=== PATIENT | male | born 1965 | race Hispanic/Latino ===

== ENCOUNTER 2021-04-04 19:50 | Emergency (ER) | payer SELFPAY ==
[2021-04-04] MEDS ORDERED: ZIPRASIDONE MESYLATE 20 MG VIAL IM ONE ×2 (20:09→20:10)
--- NOTE | 2021-04-04 20:21 | Emergency Department Report ---
ED Psych HPI - General Chief Complaint: Psych Stated Complaint: HALLCUNATIONS Time Seen by Provider: 04/04/21 20:08 Source: EMS Mode of arrival: Ambulatory - History of Present Illness Initial Comments: Patient is 55 years old male, unknown psychiatric history. Patient brought to the emergency room by EMS from a local [employer] store for evaluation of altered mental status. EMS stated that [facility] the staff called the police and police at the scene for patient acting bizarre and when they approach him he stated that several people from [employer] are following him and trying to get him. Patient also admitted to them that he has been using methamphetamine. Upon arrival to the ER patient is hyperverbal, agitated and restless. Patient admitted that there is people from [employer] are following him and tried to kill him. Patient just kept looking around. EMS reported that patient has a knife in his pocket and the police took it. Patient is in acute psychosis. Patient is fighting the e mergency room staff. Patient received Geodon 20 mg IM for sedation. MD Complaint: altered mental status -: unknown Associated Psychiatric Symptoms: racing thoughts Quality: constant Associated Symptoms: denies other symptoms - Related Data Previous Rx's Medication Instructions Recorded Last Taken Type Venlafaxine [Effexor 37.5mg tab] 37.5 mg PO QDAY 30 Days #30 tab 04/05/21 Unknown Rx Allergies Allergy/AdvReac Type Severity Reaction Status Date / Time No Known Allergies Allergy Verified 04/04/21 20:06 ED Review of Systems ROS: Stated complaint: HALLCUNATIONS Other details as noted in HPI Comment: Unobtainable due to pts medical conditions ED Past Medical Hx - Past Medical History Previous Medical History?: No - Medications Home Medications: Home Medications Medication Instructions Recorded Confirmed Last Taken Type Venlafaxine [Effexor 37.5mg tab] 37.5 mg PO QDAY 30 Days #30 tab 04/05/21 Unknown Rx ED Physical Exam - General Limitations: No Limitations General appearance: anxious, other (Agitated) - Head Head exam: Present: atraumatic, normocephalic, normal inspection - Eye Eye exam: Present: normal appearance - ENT ENT exam: Present: normal exam, normal orophraynx, mucous membranes moist - Neck Neck exam: Present: normal inspection, full ROM. Absent: tenderness, meningismus - Respiratory Respiratory exam: Present: normal lung sounds bilaterally - Cardiovascular Cardiovascular Exam: Present: regular rate, normal rhythm, normal heart sounds - GI/Abdominal GI/Abdominal exam: Present: soft, normal bowel sounds. Absent: distended, tenderness, guarding, rigid, organomegaly, mass, bruit, pulsatile mass, hernia - Extremities Exam Extremities exam: Present: normal inspection, full ROM, normal capillary refill. Absent: tenderness - Back Exam Back exam: Present: normal inspection, full ROM. Absent: CVA tenderness (R), CVA tenderness (L) - Neurological Exam Neurological exam: Present: alert, CN II-XII intact, normal gait, reflexes normal. Absent: motor sensory deficit - Psychiatric Psychiatric exam: Present: agitated, manic. Absent: homicidal ideation, suicidal ideation - Skin Skin exam: Present: warm, intact, normal color ED Course Vital Signs 04/04/21 04/04/21 04/05/21 20:06 22:15 00:43 Temperature 98.6 F 97.6 F Pulse Rate 96 H 73 Respiratory 18 20 20 Rate Blood Pressure 130/98 106/73 [Left] O2 Sat by Pulse 98 96 96 Oximetry 04/05/21 04/05/21 04/05/21 03:48 09:52 10:28 Temperature 97.3 F L 98.2 F Pulse Rate 75 93 H Respiratory 16 20 Rate Blood Pressure 91/52 101/53 [Left] O2 Sat by Pulse 97 95 93 Oximetry ED Medical Decision Making - Lab Data Result diagrams: 04/04/21 20:14 04/04/21 20:14 - Medical Decision Making Patient is 55 years old male, unknown psychiatric history. Patient brought to the emergency room by EMS from a local [employer] store for evaluation of altered mental status. EMS stated that [facility] the staff called the police and police at the scene for patient acting bizarre and when they approach him he stated that several people from [employer] are following him and trying to get him. Patient also admitted to them that he has been using methamphetamine. Upon arrival to the ER patient is hyperverbal, agitated and restless. Patient admitted that there is people from [employer] are following him and tried to kill him. Patient just kept looking around. EMS reported that patient has a knife in his pocket and the police took it. Patient is in acute psychosis. Patient is fighting the emergency room staff. Patient received Geodon 20 mg IM for sedation. Labs reviewed and is unremarkable. Patient is medically cleared to be evaluated by our psychiatric team. Critical care attestation.: If time is entered above; I have spent that time in minutes in the direct care of this critically ill patient, excluding procedure time. ED Disposition Clinical Impression: Acute psychosis Disposition: 01 HOME / SELF CARE / HOMELESS Is pt being admited?: No Condition: Stable Additional Instructions: In case of an emergency, please contact the following numbers: [place] Crisis and Access Line: Number: Crisis Text Line: (Text START) Number: 548044 Suicide Prevention Line: Number: Emergency Number: 911 SUBSTANCE ABUSE PROGRAMS: [facility]: Location: [place], [place] [employer] Address: [address] [place] [address] [facility]: Address: [address] [place] [address] [facility]: Address: [address] [place] [address] [facility]: Address: [address] [place] [address] [facility] Address: [address] [place] [address]. Professional and Agency Contacts To help Resolve Crises (09/12) [place] Crisis Line: Suicide Prevention Line: Crisis Text Line: Text START to 373774 Emergency: 911 Outpatient COMMUNITY Behavioral Health Resources: [facility]: [facility] [address] [place], [place] [address] [facility] [address] [place] [address] Friday thru Friday - 8am - 5pm Call to schedule an assessment for mental health and substance abuse programs [facility]: [facility] Address: [address] [place] [id number] Friday thru Friday- 7am-2pm [facility] Address: [address], [place] [address] Friday thru Friday: 8:30AM-5PM Prescriptions: Venlafaxine [Effexor 37.5mg tab] 37.5 mg PO QDAY 30 Days #30 tab Referrals: PRIMARY CARE, [Primary Care Provider] - 3-5 Days
[2021-04-04 20:50] LABS: Basophils # (Auto) 0.1 K/mm3 (0.0-0.1); Basophils % (Auto) 0.6 % (0.0-1.8); Eosinophils # (Auto) 0.1 K/mm3 (0.0-0.4); Eosinophils % (Auto) 0.5 % (0.0-4.3); Hematocrit 50.3 % (35.5-45.6); Hemoglobin 16.4 gm/dl (11.8-15.2); Lymphocytes # (Auto) 1.5 K/mm3 (1.2-5.4); Lymphocytes % (Auto) 15.2 % (13.4-35.0); Mean Corpuscular HGB Conc 33 % (32-34); Mean Corpuscular Volume 93 fl (84-94); Monocytes # (Auto) 0.8 K/mm3 (0.0-0.8); Monocytes % (Auto) 8.3 % (0.0-7.3); Platelet Count 327 K/mm3 (140-440); Red Cell Distribution Width 13.8 % (13.2-15.2)
[2021-04-04 21:05] LABS: Alanine Aminotransferase 36 units/L (7-56); Albumin 4.6 g/dL (3.9-5); BUN/Creatinine Ratio 18; Blood Urea Nitrogen 18 mg/dL (9-20); Calcium 9.1 mg/dL (8.4-10.2); Hemolysis Index 8
[2021-04-04 21:13] LABS: Bilirubin,Direct < 0.2 mg/dL (0-0.2)
[2021-04-05 09:53] VITALS: BP 101/53
--- NOTE | 2021-04-05 11:04 | Consultation ---
History of Present Illness - Reason for Consult Consult date: 04/05/21 Reason for consult: mental health evaluation - History of Present Psychiatric Illness ED Note: Patient is 55 years old male, unknown psychiatric history. Patient brought to the emergency room by EMS from a local [employer] store for evaluation of altered mental status. EMS stated that [facility] the staff called the police and police at the scene for patient acting bizarre and when they approach him he stated that several people from [employer] are following him and trying to get him. P rodrigo also admitted to them that he has been using methamphetamine. Upon arrival to the ER patient is hyperverbal, agitated and restless. Patient admitted that there is people from [employer] are following him and tried to kill him. Patient just kept looking around. EMS reported that patient has a knife in his pocket and the police took it. Patient is in acute psychosis. Patient is fighting the emergency room staff. Patient received Geodon 20 mg IM for sedation. Elidia Castro is a 55 year old male with history of methamphetamine abuse. In my interview with the patient he is calm, alert and oriented x2. The patient reports using meth worth of $5-$10 every other day; last used yesterday. He presents with some paranoia stating, "I don't know if someone is following me. " He states he is employed and works everyday. The patient denies any current suicidal/homicidal ideation and denies hallucinations. Diagnoses:Denies Suicide attempts or Self-harm behavior: Denies Prior psychiatric hospitalizations: Denies Substance Abuse history:Denies Previous psychiatric medications tried: [facility] Outpatient treatment: PCP PAST MEDICAL HISTORY: None reported or document Family Psychiatric History: None reported or documented SOCIAL HISTORY Marital Status: Single Living Arrangements: Lives with mother Employment Status: employed Access to guns/weapons: Denies Education: some 12th grade History of Abuse: Denies Legal History: unknown REVIEW OF SYSTEMS Constitutional: Negative for weight loss ENT: Negative for stridor Respiratory: Negative for cough or hemoptysis All other systems reviewed and are negative MENTAL STATUS EXAMINATION General Appearance and Behavior: Age appropriate, good hygiene, wearing appropriate clothes. calm, cooperative Cooperation: Cooperative Psychomotor Behavior: Psychomotor normal Mood: anxious Affect and affective range: congruent with mood Thought Process: Self directed Thought Content:Not suicidal Speech: normal tone and pace Suicidal Ideation: Denies Homicidal Ideation: Denies Hallucinations: Denies Delusions: paranoid Impulse Control: Normal Insight and Judgment: Limited insight and fair judgment Memory: Limited Attention: Distractible Orientation: a/o x 2 Assessment (1)Amphetamine type substance use disorder (2) Current Visit: Yes Status: Acute Treatment Plan Continue previously prescribed medications. The patient to comply with previously prescribed medications Risks, benefits and alternatives of medications discussed with the patient, joão ricks answered and consent obtained from patient. PSYCHOTHERAPY: Supportive psychotherapy provided MEDICAL: Per primary team DELIRIUM PRECAUTIONS: Please re-orient patient frequently, keep lights on during the day, and minimize benzodiazepines and opiates as these medications could worsen patient's confusion. COLLECT ON DELIVERY CLERK: Defer to primary DISPOSITION: Do not recommend acute psychiatric inpatient treatment. The sitter to give the patient resources and safety plan Will sign off. Thanks Case staffed with Dr. Garcia Medications and Allergies Objective Medications and Allergies Allergies Allergy/AdvReac Type Severity Reaction Status Date / Time No Known Allergies Allergy Verified 04/04/21 20:06 Mental Status Exam - Vital signs Last Vital Signs Temp 98.2 F 04/05/21 09:52 Pulse 93 H 04/05/21 09:52 Resp 20 04/05/21 09:52 BP 101/53 04/05/21 09:52 Pulse Ox 93 04/05/21 10:28 Results Result Diagrams: 04/04/21 20:14 04/04/21 20:14 Abnormal lab results 04/04/21 04/04/21 04/04/21 Range/Units 20:14 20:14 20:14 RBC 5.40 H (3.65-5.03) M/mm3 Hgb 16.4 H (11.8-15.2) gm/dl Hct 50.3 H (35.5-45.6) % [place] % (Auto) 8.3 H (0.0-7.3) % Seg Neutrophils % 75.4 H (40.0-70.0) % Sodium 136 L (137-145) mmol/L Carbon Dioxide 19 L (22-30) mmol/L Glucose 113 H (75-100) mg/dL Total Creatine Kinase 199 H (55-170) units/L Total Protein 8.6 H (6.3-8.2) g/dL Salicylates < 0.3 L (2.8-20.0) mg/dL Acetaminophen (10.0-30.0) ug/mL 04/04/21 Range/Units 20:14 RBC (3.65-5.03) M/mm3 Hgb (11.8-15.2) gm/dl Hct (35.5-45.6) % [place] % (Auto) (0.0-7.3) % Seg Neutrophils % (40.0-70.0) % Sodium (137-145) mmol/L Carbon Dioxide (22-30) mmol/L Glucose (75-100) mg/dL Total Creatine Kinase (55-170) units/L Total Protein (6.3-8.2) g/dL Salicylates (2.8-20.0) mg/dL Acetaminophen 5.0 L (10.0-30.0) ug/mL All other labs normal.
--- NOTE | 2021-04-05 11:44 | Event Note ---
Date: 04/05/21 Evaluated patient Paxton Castro 5-year-old male who presented with hallucinations he has been evaluated by psych and has no suicidal or homicidal ideation he states that he is currently employed psychiatry recommended that patient does not need to be admitted in a psych facility patient is stable for discharge will have patient follow-up with resources. Patient is in no acute distress. Gait patient additional verbal discharge instructions and signs to return to the ED if worsening mental state or any distress.
== END 2021-04-05 13:04 | disposition home or self-care (01) ==
LOC: ED 19:50 → EEVIPCON 19:50 → ED 04-05 13:04
DX: F23 Brief psychotic disorder (principal); Z20.822 Contact with and (suspected) exposure to COVID-19
CPT/HCPCS: 36415; 80048; 80076; 82550; 85025; 96372; 99284; J3486; U0003; 80320; G0480